=== PATIENT | female | born 1970 | race Caucasian/White ===

== ENCOUNTER 2016-09-17 16:48 | Outpatient (CLI) ==
[2013-10-21 01:32] VITALS: BMI 21.2
[2016-09-17 17:17] LABS: BILIRUBIN,URINE Negative (NEGATIVE); KETONES,URINE Negative (NEGATIVE); LEUKOCYTE ESTERASE ,URINE 1+ (NEGATIVE); NITRITE,URINE Negative (NEGATIVE); PH,URINE 5.5 (5-9); PROTEIN,URINE Trace (NEGATIVE); URINE, BLOOD Trace-intact (NEGATIVE)
[2016-09-17 17:22] LABS: BASOPHILS # (AUTO) 0.1 K/uL (0-0.2); BASOPHILS % (AUTO) 0.6 % (0.0-3.0); EOSINOPHILS # (AUTO) 0.2 K/ul (0.0-0.7); EOSINOPHILS % (AUTO) 2.2 % (0.0-7.0); HEMATOCRIT 43.1 % (37.0-47.0); HEMOGLOBIN 14.8 g/dl (12.0-16.0); IMMATURE GRANULOCYTE % (AUTO) 0.3 % (0.0-5.0); LYMPHOCYTES # (AUTO) 3.5 K/uL (0.60-3.4); LYMPHOCYTES % (AUTO) 34.8 (10.0-50.0); MEAN CORPUSCULAR HGB CONC 34.3 (31.8-35.4); MEAN CORPUSCULAR VOLUME 84.3 fl (81.0-99.0); MONOCYTES # (AUTO) 0.5 K/uL (0.4-2.0); MONOCYTES % (AUTO) 5.4 (0-10); NEUTROPHILS # (AUTO) 5.6 K/ul (2.0-6.9); NEUTROPHILS % (AUTO) 56.7; PLATELET COUNT 298 10^3/uL (140-440); RED BLOOD COUNT 5.11 10^6/ul (4.20-5.40); WHITE BLOOD COUNT 9.96 K/ul (4.6-10.2)
[2016-09-17 17:37] LABS: ALBUMIN 4.1 g/dL (3.4-5.0); ALBUMIN/GLOBULIN RATIO 1.24; ANION GAP 14.4; BILIRUBIN,TOTAL 0.22 mg/dL (0.00-1.20); BUN/CREATININE RATIO 19.69; CALCIUM 9.5 mg/dL (8.2-10.2); CHOL/HDL RATIO 3.2 (4.5-5.5); CREATININE 0.66 mg/dL (0.60-1.30); POTASSIUM 3.4 mmol/L (3.5-5.10); TOTAL PROTEIN 7.4 g/dL (6.4-8.2)
[2016-09-17 17:39] LABS: ADD URINE MICROSCOPIC YES
[2016-09-17 17:43] LABS: BACTERIA,URINE TRACE (NOT PRESENT)
[2016-09-17 18:02] LABS: ERYTHROCYTE SEDIMENTATION RATE 6 mm/hr (0-20); ESR INTERNAL QC INTERNAL QC VALID
== END 2016-09-17 16:49 | disposition home or self-care (01) ==
LOC: LAB 16:48
PROVIDERS: ATTEND General Practice
DX: R51 Headache (principal); M79.7 Fibromyalgia; J32.0 Chronic maxillary sinusitis; W57.XXXA Bitten or stung by nonvenomous insect and other nonvenomous arthropods, initial encounter
CPT/HCPCS: 36415; 80053; 80061; 81001; 85025; 85651; 86617; 87086

== ENCOUNTER 2016-09-18 09:56 | Outpatient (CLI) ==
[2013-10-21 01:32] VITALS: BMI 21.2
--- NOTE | 2016-09-18 11:03 | CT ---
EXAM: CT of the head without contrast History: Headache. Comparison: Head CT 09/26/2009 Technique: Multiplanar CT images through the head were obtained without the administration of IV co ntrast Findings: The visualized paranasal sinuses and mastoid air cells are clear in general. No acute ca lvarial abnormalities. Intracranially the ventricular and cisternal spaces are normal in size, shape and configuration for a patient of this age. No dominant mass or midline shift. No hydrocephalous. No acute intracrania l hemorrhage or abnormal extraaxial fluid collections. Impression: No acute intracranial process.
== END 2016-09-18 09:57 | disposition home or self-care (01) ==
LOC: RAD 09:56
PROVIDERS: ATTEND General Practice
DX: R51 Headache (principal); J32.9 Chronic sinusitis, unspecified

== ENCOUNTER 2016-09-27 16:06 | Outpatient (CLI) ==
[2013-10-21 01:32] VITALS: BMI 21.2
== END 2016-09-27 16:07 | disposition home or self-care (01) ==
LOC: LAB 16:06
PROVIDERS: ATTEND General Practice
DX: M79.7 Fibromyalgia (principal); W57.XXXA Bitten or stung by nonvenomous insect and other nonvenomous arthropods, initial encounter
CPT/HCPCS: 36415; 86617

== ENCOUNTER 2016-10-31 16:07 | Outpatient (CLI) ==
[2013-10-21 01:32] VITALS: BMI 21.2
== END 2016-10-31 16:08 | disposition home or self-care (01) ==
LOC: LAB 16:07
PROVIDERS: ATTEND General Practice
DX: M79.7 Fibromyalgia (principal); W57.XXXA Bitten or stung by nonvenomous insect and other nonvenomous arthropods, initial encounter
CPT/HCPCS: 36415; 86617

== ENCOUNTER 2017-03-28 15:07 | Inpatient (IN) ==
[2017-03-28 16:13] VITALS: BMI 23.6
[2017-03-28] MEDS ORDERED: NITROSTAT SL PRN (16:16)
[2017-03-28] MEDS ORDERED: VISTARIL INJ IM PRN (16:16)
[2017-03-28] MEDS ORDERED: ATROPINE SULFATE PFS IVP PRN (16:16)
[2017-03-28] MEDS ORDERED: MORPHINE 4 MG/ML VIAL IVP PRN (16:16)
[2017-03-28] MEDS ORDERED: TYLENOL PO PRN (16:16)
[2017-03-28] MEDS ORDERED: TUSSIONEX PO STA (16:23)
[2017-03-28] MEDS ORDERED: DECADRON 4 MG/ML SDV IVP STA (16:24)
[2017-03-28] MEDS ORDERED: TORADOL IVP STA (16:24)
[2017-03-28] MEDS ORDERED: TYLENOL PO STA (17:41)
[2017-03-28] MEDS ORDERED: TAMIFLU ONE (17:49)
[2017-03-28] MEDS: TAMIFLU PO SCH ×2 (17:59→20:54)
[2017-03-28] MEDS ORDERED: D5%-1/2NS-KCL 30 MEQ/L IV SOL 1,000 ML IV SCH (18:00)
[2017-03-28] MEDS ORDERED: INFUVITE ADULT IV ONE (18:10)
[2017-03-28] MEDS: D5 IV SCH (18:15)
[2017-03-28] MEDS: INFUVITE ADULT IV SCH (18:15)
[2017-03-28] MEDS: [UNRECOGNIZED DRUG - OTHER] IV SCH (18:15)
[2017-03-28] MEDS ORDERED: MOTRIN PO ONE (20:55)
[2017-03-29] MEDS ORDERED: INFUVITE ADULT IV ONE (02:58)
[2017-03-29] MEDS: INFUVITE ADULT IV SCH (03:59)
[2017-03-29] MEDS: [UNRECOGNIZED DRUG - OTHER] IV SCH (03:59)
[2017-03-29] MEDS: D5 IV SCH (03:59)
--- NOTE | 2017-03-29 07:39 | DI ---
EXAM: Chest two view, frontal and lateral views. HISTORY: Shortness of breath. COMPARISON: 09/14/2015. FINDINGS: The heart size is normal. There is no pulmonary vascular congestion. The lungs are clear . No pleural effusion or pneumothorax is seen. No acute osseous abnormality identified. Since the prior study, there has been no significant interval change. IMPRESSION: No acute cardiopulmonary process.
[2017-03-29] MEDS: ASPIRIN EC PO SCH (08:11)
[2017-03-29] MEDS: TAMIFLU PO SCH ×2 (08:11→21:02)
--- NOTE | 2017-03-29 10:03 | PCM.CONS ---
CONSULTING PROVIDER: Dr. EVA REYES ATTENDING PROVIDER: Dr. MAY FISHER[facility] DATE OF SERVICE: 03/29/17 SUBJECTIVE: This 47 year old WHITE/ F was hospitalized 03/28/17. The patient was seen in consult and referred for chest tightness which is usually with cough. The patient has flu type of symptoms. Influenza A positive. The patient has chest tightness with cough. No exertional chest discomfort. No history of any medical problems. REVIEW OF SYSTEMS: CONSTITUTIONAL: No night sweats. No fatigue, malaise, lethargy. No fever or chills. HEENT: Eyes: No visual changes. No eye pain. No eye discharge. ENT: No runny nose. No epistaxis. No sinus pain. No odynophagia. No congestion. RESPIRATORY: No cough, no congestion. No hemoptysis. No shortness of breath. CARDIOVASCULAR: No angina symptoms. No CHF symptoms. No atypical chest pain for CAD. No palpitations. No orthopnea. GASTROINTESTINAL: No abdominal pain. No nausea or vomiting. No diarrhea or constipation. No hematemesis. No hematochezia. GENITOURINARY: No urgency. No frequency. No dysuria. No hematuria. No obstructive symptoms. No discharge. No pain. No significant abnormal bleeding. MUSCULOSKELETAL: No musculoskeletal pain; no joint swelling. NEUROLOGICAL: Awake, alert, oriented to time, place and person. No headache. No neck pain. No syncope. No seizures. No dizziness. PSYCHIATRIC: Not anxious. No depression. No suicidal thoughts. No homicidal thoughts. SKIN: No rash. No lesions. No wounds. ENDOCRINE: No unexplained weight loss. No weight gain. HEMATOLOGIC/LYMPHATIC: No anemia. No purpura. No petechiae. No prolonged or excessive bleeding. No palpable lymph nodes. PHYSICAL EXAMINATION: GENERAL: The patient is awake, alert and oriented, lying in bed in no distress. VITAL SIGNS: Temperature 97.8 F, Pulse 58, Respiratory Rate 16, BP 116/72, Pulse Ox 97% HEENT: Head normocephalic, atraumatic. Eyes: Extraocular muscles are intact. Pupils are equal, round and reactive to light and accommodation. Ears: No lesions. Nose appeared normal. Throat: No exudate or erythema. NECK: Supple. No JVD, no carotid bruit. No lymphadenopathy or thyromegaly. LUNGS: Clear to auscultation. Percussion note normal. Chest symmetrical. HEART: S1, S2, no S3. No murmurs. No cyanosis or clubbing. No ascites. Pulses: Dorsalis pedis and posterior tibial pulses +1 to +2 both sides. ABDOMEN: Soft. Non-tender. Bowel sounds active. No CVA tenderness. No mass felt. EXTREMITIES: No edema. Full range of motion of all extremities, equal. NEUROLOGIC: No focal deficit. Cranial nerves II through XII are grossly intact. No headache, no double vision or headache. SKIN: Warm and dry. Intact. Turgor-normal. LYMPHATIC: No palpable lymph nodes/no lymphedema. MUSCULOSKELETAL: Normal joints with no swelling. Muscle tone is normal. LAB REVIEW: 03/28/17 16:37 03/28/17 16:37 03/29/17 00:30: Total Creatine Kinase 64, Troponin I < 0.0100 03/28/17 16:37: Procalcitonin < 0.05 03/28/17 16:37: Sodium 140, Potassium 3.7, Chloride 105, Carbon Dioxide 29, Anion Gap 9.7, BUN 9, Creatinine 0.57 L, Estimated GFR (MDRD) 114.00, BUN/ Creatinine Ratio 15.78, Glucose 88, Calcium 8.4, Total Bilirubin < 0.3, AST 15, ALT 13, Alkaline Phosphatase 69, Total Creatine Kinase 73, Troponin I < 0.0100, Total Protein 6.3 L, Albumin 3.2 L, Globulin 3.1, Albumin/Globulin Ratio 1.03 03/28/17 16:37: WBC 5.23, RBC 4.68, Hgb 13.6, Hct 39.8, MCV 85.0, MCH 29.1, MCHC 34.2, RDW Coeff of Ju[place]o 12.7, Plt Count 165, Immature Gran % (Auto) 0.2, Neut % (Auto) 31.6, Lymph % (Auto) 60.2 H, Josephine % (Auto) 5.7, Eos % (Auto) 1.9, Baso % (Auto) 0.4, Immature Gran # (Auto) 0.0, Neut # 1.7 L, Lymph # 3.2, Josephine # 0.3 L, Eos # 0.1, Baso # 0.0 02/15/18 14:30: Urine Color Yellow, Urine Clarity Clear, Urine pH 7.0, Ur Specific [place] 1.010, Urine Protein Negative, Urine Glucose (UA) Negative, Urine Ketones Negative, Urine Blood Negative, Urine Nitrite Negative, Urine Bilirubin Negative, Urine Urobilinogen 0.2, Ur Leukocyte Esterase Negative ASSESSMENT: 1. FLU SYMPTOMS 2. PLEURITIC CHEST PAIN 3. CARDIOVASCULAR STATUS IS STABLE RECOMMENDATIONS/PLAN: 1. Echo to be done. No pericardial rub or evidence of pericariditis. Plan and coordination of the patient's care discussed in the presence of Hand Developer and Nurse. CONDITION: STABLE SCRIBED BY: KJ SOTO Route Cdl Driver scribed while in presence of service performed by Dr. EVA REYES on 03/29/17 ([id number])
[2017-03-29] MEDS ORDERED: NORCO 5-325 PO STA (10:36)
[2017-03-29] MEDS ORDERED: NORCO 5-325 ONE (10:41)
[2017-03-29] MEDS: LOVENOX SUBCUT SCH (13:06)
[2017-03-30] MEDS: ASPIRIN EC PO SCH (08:33)
[2017-03-30] MEDS: TAMIFLU PO SCH ×2 (08:33→20:38)
[2017-03-30] MEDS: LOVENOX SUBCUT SCH (08:34)
--- NOTE | 2017-03-30 13:21 | DI ---
EXAM: PA and lateral views of the chest HISTORY: Fever, cough COMPARISON: 03/28/2017 FINDINGS: No focal consolidation, pleural effusion or pneumothorax is seen. The cardiomediastinal silhouette is within normal limits. IMPRESSION: No acute cardiopulmonary findings.
[2017-03-31] MEDS: LOVENOX SUBCUT SCH (08:15)
[2017-03-31] MEDS: ASPIRIN EC PO SCH (08:16)
[2017-03-31] MEDS: TAMIFLU PO SCH ×2 (08:16→20:37)
[2017-03-31] MEDS ORDERED: TYLENOL PO STA (10:41)
[2017-04-01] MEDS: TAMIFLU PO SCH (08:53)
[2017-04-01] MEDS: ASPIRIN EC PO SCH (08:53)
[2017-04-01] MEDS: LOVENOX SUBCUT SCH (08:54)
--- NOTE | 2017-04-01 09:45 | CONS ---
DATE OF CONSULTATION: 03/28/17 REASON FOR CONSULTATION: Chest pain attending Dr. Alvarez HISTORY OF PRESENT ILLNESS: Izabela was seen in the office with having flu type of symptoms of two day duration. The patient had dry hacky cough, every time she coughed she had severe chest pain and the chest felt like a heaviness and tight feeling. She was unable to breathe deep because of the chest tightness and heaviness. The patient also had some chills for past couple of days with fever with poor appetite. REVIEW OF SYSTEMS: CONSTITUTIONAL: No night sweats. Weakness and fatigue. No fever or chills. HEENT: Eyes: No visual changes. No eye pain. No eye discharge. ENT: No sinus drainage. No epistaxis. No sinus pain. No sore throat. No odynophagia. No ear pain. No congestion. RESPIRATORY: Cough which is dry and hacky, no congestion. No hemoptysis. No shortness of breath. CARDIOVASCULAR: No angina symptoms. No CHF symptoms. No atypical chest pain for CAD. No palpitations. No orthopnea.Chest tightness. No PND. GASTROINTESTINAL: No abdominal pain. Nausea and felt sick to her stomach with no vomiting. Loose stools for couple of days. No hematemesis. No hematochezia. GENITOURINARY: No urgency. No frequency. No dysuria. No hematuria. No obstructive symptoms. No discharge. No pain. No significant abnormal bleeding. MUSCULOSKELETAL: No musculoskeletal pain. No joint swelling. Generalized aches and pains. NEUROLOGICAL: No headache. No neck pain. No syncope. No seizures. No dizziness. PSYCHIATRIC: Not anxious. No depression. No suicidal thoughts. No homicidal thoughts. SKIN: No rash. No lesions. No wounds. ENDOCRINE: No unexplained weight loss. No weight gain. HEMATOLOGIC/LYMPHATIC: No anemia. No purpura. No petechiae. No prolonged or excessive bleeding. No palpable lymph nodes. MEDICATIONS: Ibuprofen 200mg PO Q 8-12 hours PRN ALLERGIES: Gabapentin Pregabalin Cefuroxime PAST MEDICAL HISTORY/PAST SURGICAL HISTORY: NO history of medical problems Eye surgery a long time ago Hysterectomy a long time ago SOCIAL/PERSONAL/FAMILY HISTORY: The patient is and lives with the . Smokes more than a pack a day. No alcohol abuse and drug abuse. PHYSICAL EXAMINATION: GENERAL: The patient is oriented to time, place and person. VITAL SIGNS:Temperature 98.5, pulse 80, respiratory rate 15, blood pressure 130/ 70 and saturation 98% on room air. HEENT: Head normocephalic, atraumatic. Eyes: Extraocular muscles are intact. Pupils are equal, round and reactive to light and accommodation. Ears: No lesions. Nose appeared normal. Throat: No exudate or erythema. NECK: Supple. No JVD, no carotid bruit. No lymphadenopathy or thyromegaly. LUNGS: Clear to auscultation. Percussion note normal. Chest symmetrical. HEART: S1, S2, no S3. No murmurs. No cyanosis or clubbing. No ascites. Pulses: Dorsalis pedis and posterior tibial pulses +1 to +2 both sides. ABDOMEN: Soft. Nontender. Bowel sounds active. No CVA tenderness. No mass felt. EXTREMITIES: No edema. Full range of motion of all extremities, equal. NEUROLOGIC: No focal deficit. Cranial nerves II through XII are grossly intact. No headache, no double vision or headache. SKIN: Not dry. Intact. Turgor - normal. LYMPHATIC: No palpable lymph nodes/no lymphedema. MUSCULOSKELETAL: Normal joints with no swelling. Muscle tone is normal. LABS: EKG sinus rhythm, no acute changes. Cardiac markers are pending. ASSESSMENT: 1. Chest pain seems to be pleuritic type with flu type of symptoms and dehydration RECOMMENDATIONS: 1. Already orders given for 30mg of Toradol IV with 1cc Decadron and Tussionex a couple of teaspoons full 2. Keep telemetry 3. Cardiac markers 4. Will do echocardiogram Thanks for referral, will follow. RACHEAL
--- NOTE | 2017-04-01 10:21 | ECHO2D ---
Date of Exam: 03/29/17 Ordering Physician: DR. MAY FISHER Room # : [id number] Reason for Echo: CHEST PAIN M-Mode Normal Adult Results LV Dimensions Normal Adult Results AoV Opening excursions >1.6 >1.6 LVEDD-base- 3.5-5.8 3.6 Ao root dimensions 2.0-3.7 3.4 LVESD-base- 3.1-4.6 L. Atrium dimensions 1.9-3.8 3.6 Post. Wall thickness 0.8-1.1 1.0 IV septum (thickness) 0.7-1.2 1.0 Post. Wall excursion 0.72-1.3 NORMAL Septal motion NORMAL Systolic motion R. Ventricular cavity 1.5-2.0 2.2 LVEF 60% 58% Paradoxical septal wall motion NORMAL 2-D : 2-D M Mode Echocardiogram was performed using apical four chamber and left parasternal long and short axis views. Mitral, tricuspid and aortic valves appear to be normal. Contractility of the left ventricle seems to be normal, so is the cavity size. Left atrial cavity size and aortic root appear to be normal. There is no pericardial effusion. There is no thrombus noted in the left ventricular or left aortic cavity. No mitral valve prolapse noted. M-MODE: MV: NORMAL AV: NORMAL TV: NORMAL PV: CHAMBER SIZE: NORMAL WALL MOTION: NORMAL PERICARDIUM: NORMAL INTERPRETATION: 1. NORMAL LEFT VENTRICULAR CONTRACTILITY 2. NORMAL VALVES MTDD
[2017-04-01 10:36] VITALS: BP 95/71; TEMP 97.4
[2017-04-01] MEDS ORDERED: TYLENOL PO PRN (10:44)
[2017-04-01] MEDS ORDERED: AVELOX PO SCH (12:30)
--- NOTE | 2017-04-02 06:41 | CONS ---
DATE OF SERVICE: 03/30/17 CONSULT FOLLOWUP SUBJECTIVE: 47-year-old white female seen on consultation with chest tightness. She is influenza A positive. She is feeling somewhat better. The chest tightness has subsided. PHYSICAL EXAMINATION: HEENT: Head normocephalic, atraumatic. Eyes: Extraocular muscles are intact. Pupils are equal, round and reactive to light and accommodation. Ears: No lesions. Nose appeared normal. Throat: No exudate or erythema. NECK: Supple. No JVP, no carotid bruit. No lymphadenopathy or thyromegaly. LUNGS: Decreased breath sounds but clear to auscultation. Percussion note normal. Chest symmetrical. HEART: S1, S2, no S3. No murmurs. No pericardial rub. No cyanosis or clubbing. No ascites. Pulses: Dorsalis pedis and posterior tibial pulses +1 to +2 both sides. ABDOMEN: Soft. Nontender. Bowel sounds active. No CVA tenderness. No mass felt. EXTREMITIES: No edema. Full range of motion of all extremities, equal. NEUROLOGIC: No focal deficit. Cranial nerves II through XII are grossly intact. No headache, no double vision or headache. SKIN: Not dry. Intact. Turgor - normal. LYMPHATIC: No palpable lymph nodes/no lymphedema. MUSCULOSKELETAL: Normal joints with no swelling. Muscle tone is normal. ASSESSMENT: 1. CARDIOVASCULAR STATUS STABLE WITH CHEST TIGHTNESS, LIKELY RELATED TO PLEURITIC TYPE OF PAIN WITH BRONCHITIS AND INFLUENZA A POSITIVE. RECOMMENDATIONS: 1. Continue the same management. MTDD
--- NOTE | 2017-04-02 06:43 | PN ---
CODING FOR BILLING 03/28/17 LEVEL 5 03/29/17 INTERMEDIATE 03/30/17 INTERMEDIATE MTDD
--- NOTE | 2017-04-03 15:18 | DS ---
PATIENT IDENTIFICATION: 47 year old female was initially seen at the office because of headaches, Muscular aches and chest pain with cough that is repetitive and non productive and fever. HOSPITAL COURSE: The patient claimed to have had cough and headaches with muscular aches 2-3 days prior to presentation to the office. The patient also complained of significant pain in the anterior chest described as oppression or somebody sitting on her. The patient had a positive rapid influenza B and because of the chest pain the patient was admitted to the hospital. This patient had been taking ibuprofen at home three times a day 200mg. Temperature was normal since admission and remained normal throughout her hospital stay. Her blood pressure also remained normal as well as the pulse rate. Her respiratory rate ranged from 15-20 and the oxygen saturation is from 95-100%. Chest x-ray on admission showed no acute cardiopulmonary process. Repeat chest x-ray three days later showed no significant changes. The patient on admission was given intervenous fluids and electrolyte replacement as well as Tamiflu 75mg every 12 hours. She was given Toradol 30mg intervenously once and Tylenol 650mg also once. Both of these were discontinued after that and the Tylenol was given only after the nurses had called me with regards to the headaches. This patient was placed on Telemetry and then examined by the consulting packaging sales representative and was followed by him along with me. The patient's echocardiogram was done 03/29/17 and then valves were normal and it is essentially normal with left ventricular ejection fraction of 58%. The patient on the day of discharge had some headaches again and was given Tylenol. The patient was examined just before discharge and she was alert, ambulatory with movement of all her extremities. She did have tenderness more in the frontal sinus areas as well as the maxillary. NECK: No masses and no bruit and no adenopathies or adenitis LUNGS: Still has diminished breath sounds but no rales or wheezing HEART: Audible and regular with good tones and no murmurs. ABDOMEN: Flat, soft with no remarkably tenderness. LABS: WBC 6,810, hgb 13.19, hct 41.3, plt count 242,000, Chemistries normal, total protein slightly below normal 6.3 and Albumin is 3.0. The patient on 03/30/17 had slight elevation of the AST however the AST today 04/01/17 is normal at 19. The ALT remained normal. The patient was given Avelox 400mg intervenously before discharge and is prescribed Avelox 400mg #6 tablet to be taken one daily beginning tomorrow. She also was prescribed Tamiflu three capsules to be taken today and two tomorrow. That will complete 5 days of medication. The patient's CK was normal and remained normal on repeat as well as the Troponin. I did talk to the Business Management Professor and he did not see any signs of myocarditis or pericarditis which sometimes can happen with viral problems or infection. This patient on discharge was instructed not to resume smoking. He is to see me in about a week and before if there is any concern or maybe go to the emergency room if the office is closed. FINAL DIAGNOSES: 1. Viral syndrome. Influenza B improved 2. Anterior oppressive chest pain probably noncardiac 3. Chronic tobacco use and abuse, persistent 4. Frontal and maxillary sinusitis This patient was again advised not to resume smoking and emphasized the bad effects of smoking to her health. RACHEAL
--- NOTE | 2017-04-18 15:09 | PN ---
DATE OF VISIT: 03/29/17 SUBJECTIVE: The patient today is alert and responsive, still complaining of headache. She is consuming some of her dinner anywhere between 50-75%. VITAL SIGNS: Temperature 98 orally, pulse 76, blood pressure 144/96, respiratory rate 20 and oxygen saturation 98 at room air. The patient is alert, not dyspneic or tachypneic and no cyanosis. The patient has movement of all extremities. NECK: Without any remarkably tenderness and a good range of motion CHEST: Symmetrical and equal with good expansion LUNGS: breath sounds are heard in both sides, no rales or wheezing. The patient doesn't have any significant chest pain now which was remarkably at the time of admission requiring cardiology consultation . HEART: Normal sinus rhythm ABDOMEN: Soft, nontender LEGS: No tenderness. The patient's repeat Troponin remained normal as well as CK. No other labs were done. The patient was seen by the Entry Level Account Executive 03/29/17. His assessment consisted of Flu symptoms, pleuritic chest pain, Cardiovascular status stable. He is going to schedule an echocardiogram. RACHEAL
--- NOTE | 2017-04-18 15:15 | PN ---
DATE OF VISIT: 03/30/17 SUBJECTIVE: The patient today is alert, oriented times four not dyspneic or tachypneic and ambulatory. No significant chest pain. Her appetite is about the same or better ; 75% of her meals. VITAL SIGNS: Temperature 98.4 orally, pulse 76, blood pressure 135/84, respiratory rate 14 and oxygen saturation 98% on room air. She still feels the muscular aches. The headache is less; no double vision and no nuchal rigidity. LUNGS: Remained clear to auscultation in both sides, no wheezing HEART: Audible and regular with good tones ABDOMEN: nontender Labs today showed normal WBC, normal hgb and hct, normal plt count. Chemistry is normal except for AST elevated at 85 and ALT remained normal at 53. Total protein and albumin below normal. MTDD
--- NOTE | 2017-04-18 15:30 | PN ---
DATE OF VISIT: 03/31/17 SUBJECTIVE: The patient is alert and feeling better. She has movement of all extremities and no shortness of breath. No significant headaches and no chest pain. The patient claimed that her appetite is good today. She wanted to go home tonight but it is already late. She told me that her dog is not able to get out and her food server will not bring the dog out. This patient will have repeat Chemistries in the morning and if the AST and ALT is higher then this patient will have more viral studies consisting of ABB, CMV as well as Hepatitic panel but that would depend on the results of the AST and ALT. VITAL SIGNS: Temperature 97.6, pulse 71, blood pressure 128/85, respiratory rate 18, oxygen saturation 97 at room air. LUNGS: Clear to auscultation in both sides HEART: Normal sinus rhythm NECK: No carotid rigidity ABDOMEN: No tenderness. Bowel sounds are active LEGS: No tenderness in the calf muscles. Orders for a repeat CBC and CMP tomorrow and again if the AST and ALT is elevated further testing will be required. RENEED
--- NOTE | 2017-05-02 15:45 | HP ---
CHIEF COMPLAINT: Severe heaviness in the chest, headache, fever, muscular aches and positive influenza B by nuclear amplification. SOURCE OF HISTORY: Patient. HISTORY OF PRESENT ILLNESS: The patient had begun experiencing these symptoms some two to three days prior to admission. PAST PERSONAL HISTORY: The patient had several surgeries to the eye, cataract. Total abdominal hysterectomy. Note: this patient was born with cataracts. FAMILY HISTORY: Father had lung carcinoma. Mother had bypass surgery, heart. Also some thyroid disease in the maternal side. SOCIAL HISTORY: The patient is single, but has a significant someone. She smokes cigarettes and continues to smoke. She denied any alcohol use and denied any substance abuse. HOME MEDICATIONS: Prior to this admission. Advil liquid gel capsule every 8 to 12 hours DRUG ALLERGIES: The patient has reactions to Gabapentin, Pregabalin and Cefuroxime axetil. REVIEW OF SYSTEMS: CONSTITUTIONAL: The patient had fever of 103 the day before admission and the patient had been taking Ibuprofen. She denied any chills, but is fatigued because of the cough, headache, muscular aches and chest tightness the last two to three days. BLASTING WORKER: The patient has headache, but denies any visual disturbances. She does have a headache history. She denies any seizures or any syncopal episodes. VISUAL: The patient denies any double vision, blurred vision or loss of vision. AUDITORY: Hearing is good. No tinnitus, dizziness, pain or drainage. RESPIRATORY: The patient has cough, repetitive and nonproductive. CARDIOVASCULAR: The patient has chest pain described as a pressure like someone is pushing her down. It is not sharp. GASTROINTESTINAL: The appetite is down. She has no nausea or vomiting or diarrhea. GENITOURINARY: Denies any pain or frequency of urination. MUSCULOSKELETAL: The patient has significant muscle and joint pains described as like a truck had run over her. ENDOCRINE: Negative. INTEGUMENT: Denies any rash or pruritus. HEMATOLOGIC: No history of prolonged bleeding. No bruises or ecchymosis or petechia. PSYCHIATRIC: Affect is normal. PHYSICAL EXAMINATION: GENERAL: We have a 47 year old female admitted to the hospital because of chest pain, which is severe, oppressive with headaches, muscular aches and fever the day before and positive for influenza B rapid test. HEAD: Unremarkable. Scalp with no active dermatitis. FACE: Symmetrical and equal with no facial weakness and no redness. There is some tenderness, but mild in the frontal and maxillary sinus areas. EYES: Pupils equal/reactive to light about 3 mm in size. Conjunctivae not pale. Sclerae not icteric. MOUTH: Unremarkable. THROAT: No inflammation, tumors or exudate. NECK: No masses. No bruit. No tenderness. No rigidity. CHEST: Essentially symmetrical and equal with good expansion. LUNGS: Breath sounds are diminished in both sides with coarse breath sounds, slightly more on the left. No wheezing. HEART: Audible and regular with good tones. No murmurs. ABDOMEN: Flat, soft with no remarkable tenderness. No guarding. Bowel sounds are active. No masses palpable. EXTERNAL GENITALIA: Not examined. PELVIC AND RECTAL: Not performed. LOWER EXTREMITIES: Symmetrical and equal with no significant edema. Pedal pulses are present. UPPER EXTREMITIES: Symmetrical and equal. ASSESSMENT: 1. OPPRESSIVE ANTERIOR CHEST PAIN, RULE OUT EVOLVING MYOCARDIAL INFARCTION 2. INFLUENZA B 3. CHRONIC TOBACCO USE AND ABUSE, PERSISTENT. MTDD
== END 2017-04-01 13:19 | disposition home or self-care (01) | DRG 866 ==
LOC: MEDSURG B 15:07
PROVIDERS: ADMIT General Practice; ATTEND General Practice
DX: B34.9 Viral infection, unspecified (principal); J10.1 Influenza due to other identified influenza virus with other respiratory manifestations; R07.89 Other chest pain; J32.1 Chronic frontal sinusitis; J32.0 Chronic maxillary sinusitis; R51 Headache; R05 Cough; E86.0 Dehydration; F17.210 Nicotine dependence, cigarettes, uncomplicated
CPT/HCPCS: 36415; 80053; 81001; 82550; 84145; 84484; 85025; 86710; 93005; 93010; 99223; 99232; 99239; 99255

== ENCOUNTER 2018-03-25 02:45 | Emergency (ER) | payer OTHER ==
[2018-03-25 02:58] VITALS: BP 149/99; TEMP 98.7; BMI 23.8
[2018-03-25] MEDS ORDERED: DUONEB NEB STA (03:12)
[2018-03-25] MEDS ORDERED: XOPENEX 1.25 MG NEB STA (03:13)
--- NOTE | 2018-03-25 03:37 | DI ---
EXAM: Chest, 2 views. HISTORY: Wheezing COMPARISON: 03/30/2017 FINDING/IMPRESSION: Cardiomediastinal countours appear stable. There is no focal pulmonary consolid ation. No pleural effusion or pneumothorax. No acute cardiopulmonary process.
[2018-03-25] MEDS ORDERED: SOLU-MEDROL 125 MG IVP STA (04:03)
[2018-03-25] MEDS ORDERED: ALBUTEROL 0.042% NEB NEB STA (04:04)
[2018-03-25] MEDS ORDERED: LEVAQUIN 500 MG in PREMIX 100 ML D5W 1 BAG IV STA (04:04)
[2018-03-25] MEDS ORDERED: LEVAQUIN 100 ML IV ONE (04:14)
--- NOTE | 2018-03-25 04:50 | ED.PDOC ---
General ED Provider: Dr. EDY BHATIA-ER Chief Complaint: Respiratory Complaint Stated Complaint: milvia got fever, cough, i am wheezing Time Seen by Physician: 02:55 Mode of Arrival: Walk-In Information Source: Patient Exam Limitations: No limitations [facility] and Triage Documentation Reviewed and Agree: Yes Does patient meet sepsis criteria?: No System Inflammatory Response Syndrome: Not Applicable Sepsis Protocol: For patient's 13 years and over: Temp is 96.8 and below OR 101 and greater Pulse >90 BPM Resp >20/minute Acutely Altered Mental Status Are patient's symptoms suggestive of a new infection, such as: -Pneumonia -Skin, Soft Tissue -Endocarditis -UTI -Bone, Joint Infection -Implantable Device -Acute Abdominal Infection -Wound Infection -Meningitis -Blood Stream Catheter Infection -Unknown Respiratory Complaint Exam - Respiratory Complaint/Exam Onset/Duration: 2 days Symptoms Are: Still present Timing: Constant Initial Severity: Mild Current Severity: Moderate Location: Chest Character: Reports: Non-productive cough Aggravating: Reports: URI Alleviating: Reports: None Associated Signs and Symptoms: Reports: Fever, Wheezing, URI, Nasal congestion, Sore throat. Denies: Rapid breathing, Dyspnea, Chest pain, Pleuritic chest pain Related History: Reports: Similar episode History of Healthcare-Acquired Pneumonia: No Tuberculosis Risk Factors: Reports: None Status Asthmaticus Risk Factors: Reports: None Home Oxygen Use: No Recent Stress Test: No Recent Echo/LV Function: No Current Antibiotic Use: No Current Asthma Medication Use: No Respiratory Distress: None Inadequate Respiratory Effort: No Dysphagia Present: No Stridor Present: No JVD Present: No Accessory Muscle Use: No Retractions: Not Present Diminished Breath Sounds: No Prolonged Respiration: Expiratory phase Sinus Tenderness: None Grunting Respirations: No Kussmaul Respirations: No Differential Diagnoses: URI Non-Traumatic Chest Pain Syncope: EKG Performed Review of Systems - Review Of Systems Constitutional: Reports: No symptoms Eyes: Reports: No symptoms Ears, Nose, Mouth, Throat: Reports: No symptoms Respiratory: Reports: Cough, Wheezing Cardiac: Reports: No symptoms GI: Reports: No symptoms : Reports: No symptoms Musculoskeletal: Reports: No symptoms Skin: Reports: No symptoms Neurological: Reports: No symptoms Endocrine: Reports: No symptoms Hematologic/Lymphatic: Reports: No symptoms All Other Systems: Reviewed and Negative Past Medical History - Past Medical History Previously Healthy: No Endocrine: Reports: Unknown Cardiovascular: Reports: Unknown Respiratory: Reports: Bronchitis, Pneumonia Hematological: Reports: Unknown Gastrointestinal: Reports: Unknown Genitourinary: Reports: Unknown Neuro/Psych: Reports: Unknown Musculoskeletal: Reports: Unknown Cancer: Reports: Unknown Last Menstrual Period: hyst 2002 - Surgical History General Surgical History: Reports: Unknown - Family History Family History: Reports: Unknown - Social History Smoking Status: Current every day smoker, Light tobacco smoker Hx Substance Use: No Alcohol Screening: None - Immunizations Tetanus Shot up to Date: Yes Physical Exam - Physical Exam Appearance: Well-appearing Eyes: COLLIN, EOMI, Conjunctiva clear ENT: Ears normal, Nose normal, Oropharynx normal Neck: Supple Respiratory: Wheezes Cardiovascular: RRR, Pulses normal, No rub, No murmur GI/: Soft, Nontender, No masses, Bowel sounds normal, No Organomegaly Musculoskeletal: Normal strength, ROM intact, No edema, No calf tenderness Skin: Warm, Dry, Normal color Neurological: Sensation intact, Motor intact, Reflexes intact, Cranial nerves intact, Alert, Oriented Psychiatric: Affect appropriate, Mood appropriate Interpretation - Radiology Interpretation Radiology Interpretation By: Radiologist Radiology Results: Negative Exam Interpreted: CXR - EKG Interpretation Time of EKG #1: 04:30 Rate: Normal Rhythm: Sinus Ectopy: None [place]: NL ST Segment: Normal Interpretation: nsr Re-Evaluation - Re-Evaluation Time of Re-Evaluation: 05:24 Status: Improved Vital Signs Stable: Yes Pain Level: 0 Appearance: NAD Lungs: Clear Skin: Warm and Dry Neuro: Alert and Oriented X3 CV: RRR Additional Comments: she did haVe discomfort at the site---asked for iv site to be changed Physician Notification - Case Discussed Physician Notified: dr lennon Time of Notification: 05:25 Critical Care Note - Critical Care Note Total Time (mins): 0 Course - Course Hematology/Chemistry: 03/25/18 03:20 03/25/18 03:20 Orders, Labs, Meds: Lab Review 03/25/18 03/25/18 03/25/18 03:08 03:20 03:20 WBC 10.61 H RBC 5.02 Hgb 14.2 Hct 42.6 MCV 84.9 MCH 28.3 MCHC 33.3 RDW Coeff of Juancho 12.5 Plt Count 288 Immature Gran % (Auto) 0.4 Neut % (Auto) 40.8 Lymph % (Auto) 47.4 Sanders % (Auto) 7.1 Eos % (Auto) 3.8 Baso % (Auto) 0.5 Immature Gran # (Auto) 0.0 Neut # (Auto) 4.3 Lymph # (Auto) 5.0 H Sanders # (Auto) 0.8 Eos # (Auto) 0.4 Baso # (Auto) 0.1 D-Dimer (Manual) Sodium 141.2 Potassium 3.77 Chloride 106.0 Carbon Dioxide 26.3 Anion Gap 12.67 BUN 12.9 Creatinine 0.52 L Estimated GFR (MDRD) 126.00 BUN/Creatinine Ratio 24.80 Glucose 81.5 Calcium 9.46 NT-Pro-B Natriuret Pep Influ A Molecular Assay Negative by naat Influ B Molecular Assay Negative by naat 03/25/18 03/25/18 03:20 03:20 WBC RBC Hgb Hct MCV MCH MCHC RDW Coeff of Juancho Plt Count Immature Gran % (Auto) Neut % (Auto) Lymph % (Auto) Sanders % (Auto) Eos % (Auto) Baso % (Auto) Immature Gran # (Auto) Neut # (Auto) Lymph # (Auto) Sanders # (Auto) Eos # (Auto) Baso # (Auto) D-Dimer (Manual) 330.06 Sodium Potassium Chloride Carbon Dioxide Anion Gap BUN Creatinine Estimated GFR (MDRD) BUN/Creatinine Ratio Glucose Calcium NT-Pro-B Natriuret Pep 25.400 Influ A Molecular Assay Influ B Molecular Assay Orders Category Date Time Status [facility] ADMISSION 03/25/18 05: 27 Active EKG-(ED ONLY) Stat CARDIO 03/25/18 04:18 Completed NEBULIZER TREATMENT Stat CARDIO 03/25/18 03:13 Completed NEBULIZER TREATMENT Stat CARDIO 03/25/18 03:14 Completed NEBULIZER TREATMENT Stat CARDIO 03/25/18 04:04 Completed ACTIVITY .BR with BRP CARE 03/25/18 05:27 Active INTAKE & OUTPUT Q8HR CARE 03/25/18 05:27 Active TELEMETRY MONITORING TELE CARE 03/25/18 05:27 Active VITAL SIGNS Q4HR CARE 03/25/18 05:27 Active REGULAR DIET DIETARY 03/25/18 Breakfast Ordered IV [ED IV/MEDIPORT/POWERPORT] .ONCE EMERGENCY 03/25/18 04:03 Active BASIC METABOLIC PANEL Stat LAB 03/25/18 03:20 Completed BLOOD CULTURE (ED ONLY) Stat LAB 03/25/18 03:20 Received CBC W/ AUTO DIFF DAILY@0600 LAB 03/25/18 06:00 Ordered CBC W/ AUTO DIFF DAILY@0600 LAB 03/26/18 06:00 Ordered CBC W/ AUTO DIFF Stat LAB 03/25/18 03:20 Completed COMPREHENSIVE METABOLIC PANEL DAILY@0600 LAB 03/25/18 06:00 Ordered COMPREHENSIVE METABOLIC PANEL DAILY@0600 LAB 03/26/18 06:00 Ordered D-DIMER Stat LAB 03/25/18 03:20 Completed FLU A & B MOLECULAR [FLU A/B MOLECULAR] Stat LAB 03/25/18 03:08 Completed PRO-BNP [NT-PROBNP] Stat LAB 03/25/18 03:20 Completed RAPID STREP SCREEN [MOLECULAR GROUP A STREP] Stat LAB 03/25/18 03:08 Completed 0.9 % Sodium Chloride [Saline Flush] MEDS 03/25/18 04:03 Ordered 1 syr IVF PRN PRN Acetaminophen [Tylenol] MEDS 03/25/18 05:27 Ordered 650 mg PO Q4H PRN Albuterol Sulfate 0.042% Neb [Albuterol 0.042% Neb] MEDS 03/25/18 04:04 Discontinued 1 vial NEB ONCE STA Clarithromycin [Biaxin] MEDS 03/25/18 09:00 Ordered 500 mg PO Q12HR Diphenhydramine Inj [Benadryl] MEDS 03/25/18 05:20 Discontinued 50 mg IVP ONCE STA Enoxaparin Sodium [Lovenox] MEDS 03/25/18 09:00 Ordered 40 mg SUBCUT DAILY Ipratropium/Albuterol Neb [Duoneb] MEDS 03/25/18 03:12 Discontinued 1 vial NEB ONCE STA Levalbuterol HCl [Xopenex 1.25 mg] MEDS 03/25/18 03:13 Discontinued 1 vial NEB ONCE STA Levofloxacin/D5w [Levaquin] 100 ml MEDS 03/25/18 04:14 Discontinued IV .STK-MED Levofloxacin/D5w [Levaquin] 500 mg MEDS 03/25/18 04:04 Discontinued Premix 100 ml D5w 1 bag IV ONCE Methylprednisolone Sod Succ/Pf [Solu-Medrol 125 mg] MEDS 03/25/18 04:03 Discontinued 125 mg IVP ONCE STA Sodium Chloride 0.9% [Sodium Chloride] 1,000 ml MEDS 03/25/18 05:30 Ordered IV 75 mls/hr RESUSCITATION STATUS Routine OTHERS 03/25/18 05:27 Ordered CXR [CHEST, 2 VIEWS PA & LAT] Stat RADS 03/25/18 03:10 Completed Medications Generic Name Dose Route Start Last Admin Trade Name Freq PRN Reason Stop Dose Admin Acetaminophen 650 mg 03/25/18 05:27 Tylenol PO Q4H PRN Mild Pain Clarithromycin 500 mg 03/25/18 09:00 Biaxin PO 03/28/18 08:59 Q12HR LISANDRO Enoxaparin Sodium 40 mg 03/25/18 09:00 Lovenox SUBCUT DAILY LISANDRO Sodium Chloride 1,000 mls @ 75 mls/hr 03/25/18 05:30 Sodium Chloride IV .[id number] LISANDRO Sodium Chloride 1 syr 03/25/18 04:03 03/25/18 04:22 Saline Flush IVF 1 syr PRN PRN Administration To flush IV Discontinued Medications Generic Name Dose Route Start Last Admin Trade Name Freq PRN Reason Stop Dose Admin Albuterol Sulfate 1 vial 03/25/18 04:04 03/25/18 04:10 Albuterol 0.042% [facility] 03/25/18 04:05 1 vial ONCE STA Administration Albuterol/Ipratropium 1 vial 03/25/18 03:12 03/25/18 03:40 Duoneb NEB 03/25/18 03:13 1 vial ONCE STA Administration Diphenhydramine HCl 50 mg 03/25/18 05:20 Benadryl IVP 03/25/18 05:21 ONCE STA Levofloxacin/Dextrose 500 mg/ 100 mls @ 100 mls/hr 03/25/18 04:04 03/25/18 04 :30 Dextrose IV 03/25/18 05:03 100 mls/hr ONCE STA Administration Levalbuterol HCl 1 vial 03/25/18 03:13 03/25/18 03:50 Xopenex 1.25 Mg NEB 03/25/18 03:14 1 vial ONCE STA Administration Methylprednisolone Sodium Succinate 125 mg 03/25/18 04:03 03/25/18 04:23 Solu-Medrol 125 Mg IVP 03/25/18 04:04 125 mg ONCE STA Administration she was initially agreeable for admission but then decided against admission--- she is still with significant exp wheezing and i felt she needed admission but she declined and explained she was at significant risk for return but still refused Vital Signs: Temp Pulse Resp BP Pulse Ox 03/25/18 02:50 98.7 F 96 H 24 149/99 H 99 Departure - Departure Time of Disposition: 05:25 Disposition: AMA Discharge Problem: COPD exacerbation, Strep pharyngitis Instructions: COPD (Chronic Obstructive Pulmonary Disease) (ED) Condition: Good Pt referred to PMD for follow-up: Yes IPMP verified?: No Additional Instructions: biaxin 500mg bid x 10 days---medrol dose pack---albuterol inhaler 2 puffs qid -- -return prn Allergies/Adverse Reactions: Allergies gabapentin [From Neurontin] Allergy (Mild, Unverified 03/28/17 14:28) Dizziness pregabalin [From Lyrica] Adverse Reaction (Severe, Unverified 03/28/17 14:28) Unknown Patient states made her suicidal cefuroxime axetil [From Ceftin] Adverse Reaction (Unverified 03/28/17 14:28) Home Medications: Ambulatory Orders Ibuprofen 200 mg PO Q6H PRN 03/25/18 Disposition Discussed With: Patient
[2018-03-25] MEDS ORDERED: BENADRYL IVP STA (05:20)
[2018-03-25] MEDS ORDERED: TYLENOL PO PRN (05:27)
[2018-03-25] MEDS ORDERED: SODIUM CHLORIDE 1,000 ML IV SCH (05:30)
[2018-03-25] MEDS ORDERED: BIAXIN PO SCH (09:00)
[2018-03-25] MEDS ORDERED: LOVENOX SUBCUT SCH (09:00)
== END 2018-03-25 05:45 | disposition left against medical advice (07) ==
LOC: ED 02:45
DX: J44.1 Chronic obstructive pulmonary disease with (acute) exacerbation (principal); J02.0 Streptococcal pharyngitis; F17.210 Nicotine dependence, cigarettes, uncomplicated
CPT/HCPCS: 36415; 80048; 83880; 85025; 85379; 87040; 87502; 87651; 93005; 93010; 94640; 96365; 96375; 99284